=== PATIENT | male | born 1955 | race Caucasian/White ===

== ENCOUNTER 2020-12-18 08:28 | Day surgery (SDC) | payer MEDICARE, BC ==
[~2020-12-18] VITALS: Ht 167.6 cm; Wt 64.4 kg
[~2020-12-18 08:28] MED LIST: ACYC400 PO; Flonase 0.05% N16 GM; METAMUCIL MULT660 GM PO; Triamcinolone A15 G2 EXT; VITAMIN B COMPLEX PO; Vitamin D2000 UNIT PO; ZYRTEC PO
[2020-12-18] MEDS ORDERED: HYDCHL25 (08:59)
--- NOTE | 2020-12-18 09:53 | NUR ---
12/18/20 0953 Bobby Obando Informed patient that case is delayed due to previous case running late. Patient states " thats fine, thanks for letting me know". Patient call light in reach. Will keep patient notifed and updated.
== END 2020-12-18 11:17 | disposition home or self-care (01) ==
LOC: ORSCSDS 08:28
PROVIDERS: Internal Medicine Gastroenterology
PROC: 0DJD8ZZ Inspection of Lower Intestinal Tract, Via Natural or Artificial Opening Endoscopic (ICD-10-PCS; principal; 2020-12-18 09:45)
DX: Z12.11 Encounter for screening for malignant neoplasm of colon (principal); Z86.010 Personal history of colon polyps; K57.30 Diverticulosis of large intestine without perforation or abscess without bleeding; I10 Essential (primary) hypertension; Z79.899 Other long term (current) drug therapy
CPT/HCPCS: J2704; J7120